=== PATIENT | male | born 1990 | race Caucasian/White ===

== ENCOUNTER 2020-05-31 07:13 | Emergency (ER) | payer SELFPAY ==
[2020-05-31 07:16] VITALS: BP 132/91; PULSE 82; RESP 18; TEMP 36.7; O2SAT 99; BMI 33.6
--- NOTE | 2020-05-31 07:31 | XR_ITS ---
WS: [id number] Exam: XR chest 1V portable [id number] Date/Time of Exam: 05/31/2020 7:31 AM Reason For Exam: chest pain Comparison 06/19/2019. Findings: The lungs are clear and fully expanded. Costophrenic angles are sharp. No infiltrates. Bronchovascula r relief appears normal. Cardiac silhouette is unremarkable. Bony elements are intact. XR/XR chest 1V portable [id number] IMPRESSION: Unremarkable chest radiograph.
--- NOTE | 2020-05-31 07:31 | ECG_ITS ---
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 Measurements Intervals Ellis Rate: 82 P: 69 MN: 171 QRS: 52 QRSD: 97 T: 31 QT: 387 QTc: 453 Interpretive Statements SINUS RHYTHM SEPTAL MYOCARDIAL INFARCTION , PROBABLY OLD [40+ ms Q WAVE IN V1/V2] Compared to ECG 06/19/2019 18:35:04 Myocardial infarct finding now present Sinus arrhythmia no longer present Electronically Signed On 05-31-2020 21:44:06 MACHINE TOOL REBUILDER by Zoe Worthy M.D. [email or web address]/[id number] f
--- NOTE | 2020-05-31 07:32 | ED_ITS ---
HPI - Chest Pain General: Chief Complaint: Chest Pain Stated Complaint: cp Time Seen by Provider: 05/31/20 07:17 History of Present Illness: HPI narrative: 30-year-old male presents emergency room complaining chest pain is when it began after he was exercising. He had been walking and running approximately a mile as he was heading back to his vehicle he began to get chest discomfort he describes as lower retrosternal pain he has some numbness in his left arm but no other symptoms its pretty much resolved at this point he laid down and then eventually made it back to his truck and laid down some morning. He does state he has had chest pain in the past and he was seen a year ago although we do not have record of that here. He has history of hypertension he is not diabetic. He is on phentermine for the last several months for weight loss but states he has been tapering off of it. He has had prior episodes including evaluation but is never any known coronary artery disease MD complaint: chest pain Onset (ago): minute(s) Timing of current episode: episodic Prior episodes: Yes Onset: during exertion Pain location: substernal Pain radiation: back Severity: moderate Quality: aching and heaviness Relieving factors: rest Exacerbating factors: exertion Associated symptoms: Deny abdominal pain, diaphoresis, dyspnea, fever(s), leg edema, nausea, palpitations, sense of impending doom, syncope or vomiting Treatment prior to arrival: none Review of Systems Const: Denies: fever(s) or diaphoresis ENMT: Denies: throat pain, ear or mastoid pain, nasal discharge or nasal congestion Card: Denies: palpitations or syncope Resp: Denies: dyspnea GI: Denies: abdominal pain, nausea or vomiting : Denies: flank pain, dysuria, urinary frequency or urinary urgency Skin/Breast: Denies: rash or pruritus PFS ED PFSH: Medical History (Updated 05/31/20 @ 10:20 by Socrates Arellano DO) Hypertension Social History (Updated 05/31/20 @ 07:43 by Socrates Arellano DO) Smoking and tobacco status: former smoker Alcohol intake: former Physical Exam Const: COMMON NORMALS: no acute distress GENERAL APPEARANCE: cooperative and comfortable ORIENTATION/CONSCIOUSNESS: Yes awake, Yes oriented to person, Yes oriented to place and Yes oriented to time HENMT: COMMON NORMALS: normocephalic, atraumatic and hearing grossly normal bilaterally HEAD & SCALP: normocephalic and atraumatic Eye: COMMON NORMALS: Equal, round and reactive pupils present, EOMs intact bilaterally, conjunctivae normal and no scleral icterus CONJUNCTIVA: Yes conjunctivae normal PUPIL: Yes Equal, round and reactive pupils present Neck/C-Spine: COMMON NORMALS: full ROM, no lymphadenopathy, supple and no JVD Lymph: LYMPHATIC: no lymphadenopathy noted and no lymphedema noted Resp: COMMON NORMALS: normal respiratory effort, No retractions, No use of accessory muscles and clear to auscultation bilaterally AUSCULTATION: clear to auscultation bilaterally Cardio: COMMON NORMALS: no JVD, regular rate, regular rhythm and No murmurs present (Cardio) RATE: regular rate RHYTHM: regular rhythm GI: COMMON NORMALS: Soft to palpation and No hepatosplenomegaly present AUSCULTATION: Yes normoactive bowel sounds PALPATION: Yes Soft to palpation, No Tenderness to palpation present (GI), No Guarding due to palpation present (GI) and Yes No hepatosplenomegaly present Extremity: COMMON NORMALS: normal to inspection, capillary refill normal, no clubbing, cyanosis or edema, no calf tenderness and no pedal edema Neuro: SENSORIUM/ORIENTATION: Yes oriented to person, Yes oriented to place and Yes oriented to time Skin: COMMON NORMALS: no rashes or lesions noted GENERAL SKIN EXAM: no rashes or lesions noted Course Vital Signs: Vital signs: Vital Signs Temperature 98.1 F 05/31/20 07:16 Pulse Rate 71 05/31/20 10:25 Respiratory Rate 15 05/31/20 10:25 Blood Pressure 142/80 05/31/20 10:25 Pulse Oximetry 97 05/31/20 10:25 MDM - Chest Pain MDM Narrative: Medical decision making narrative: Enzymes negative. We will set up for outpatient stress test. Patient mentioned some right-sided abdominal pain that he experienced shortly after he voided while he was in the emergency room repeat exam the abdomen is completely benign no signs of hernia no tenderness no masses palpable follow-up as needed. Lab Data: Labs: Lab Results 05/31/20 05/31/20 05/31/20 Range/Units 07:25 07:25 07:25 WBC Cancelled Corrected WBC Cancelled RBC Cancelled Hgb Cancelled Hct Cancelled MCV Cancelled MCH Cancelled MCHC Cancelled RDW Cancelled Plt Count Cancelled MPV Cancelled Gran % Cancelled Neut % (Auto) Cancelled Lymph % (Auto) Cancelled Weld % (Auto) Cancelled Eos % (Auto) Cancelled Baso % (Auto) Cancelled Neut # (Auto) Cancelled Lymph # (Auto) Cancelled Weld # (Auto) Cancelled Eos # (Auto) Cancelled Baso # (Auto) Cancelled Absolute Gran (aut o) Cancelled Nucleated RBC % (a uto) Cancelled Nucleated RBCs # Cancelled Sodium 141 (136-145) mmol/L Potassium 4.0 (3.5-5.1) mmol/L Chloride 100 (98-107) mmol/L Carbon Dioxide 30 H (22-29) mmol/L Anion Gap 15.0 (5-19) BUN 14 (6-20) mg/dL Creatinine 1.2 (0.7-1.2) mg/dL GFR Calculation 72.1 L (90-130) mL/min Glucose 130 H (65-115) mg/dL Calculated Osmolal ity 294 (285-295) mOsm/k g Calcium 10.3 (8.5-10.5) mg/dL Total Bilirubin 0.3 (0.15-1.2) mg/dL AST 21 (0-40) U/L ALT 26 (0-41) U/L Alkaline Phosphata se 77 (40-130) IU/L Creatine Kinase 203 (39-308) U/L Troponin T Baselin e 8 (0-15) ng/L Troponin T 120 Min [place] (0-15) ng/L Delta Troponin T (0-10) ABS# Total Protein 7.6 (6.6-8.7) g/dL Albumin 5.0 (3.5-5.2) g/dL Globulin 2.6 (1.3-4.6) g/dL 05/31/20 05/31/20 Range/Units 08:11 09:29 WBC 12.1 H Corrected WBC RBC 5.24 Hgb 15.6 Hct 45.5 MCV 86.8 MCH 29.8 MCHC 34.3 RDW 12.4 Plt Count 175 MPV 10.3 Gran % Neut % (Auto) 78.6 Lymph % (Auto) 14.7 Weld % (Auto) 5.5 Eos % (Auto) 0.6 Baso % (Auto) 0.4 Neut # (Auto) 9.50 H Lymph # (Auto) 1.8 Weld # (Auto) 0.7 Eos # (Auto) 0.1 Baso # (Auto) 0.1 Absolute Gran (aut o) Nucleated RBC % (a uto) 0 Nucleated RBCs # 0.0 Sodium (136-145) mmol/L Potassium (3.5-5.1) mmol/L Chloride (98-107) mmol/L Carbon Dioxide (22-29) mmol/L Anion Gap (5-19) BUN (6-20) mg/dL Creatinine (0.7-1.2) mg/dL GFR Calculation (90-130) mL/min Glucose (65-115) mg/dL Calculated Osmolal ity (285-295) mOsm/k g Calcium (8.5-10.5) mg/dL Total Bilirubin (0.15-1.2) mg/dL AST (0-40) U/L ALT (0-41) U/L Alkaline Phosphata se (40-130) IU/L Creatine Kinase (39-308) U/L Troponin T Baselin e (0-15) ng/L Troponin T 120 Min [place] 7.41 (0-15) ng/L Delta Troponin T -0.59 L (0-10) ABS# Total Protein (6.6-8.7) g/dL Albumin (3.5-5.2) g/dL Globulin (1.3-4.6) g/dL Discharge Plan Discharge Patient Disposition: Home Clinical Impression: Atypical chest pain Condition: Stable Prescriptions: New aspirin 81 mg tablet,delayed release (DR/EC) 81 mg PO DAILY Qty: 30 RF: 0 Discontinued phentermine 37.5 mg tablet 37.5 mg PO DAILY RF: 0 No Action calcium 600 mg Capsule 1,200 mg PO DAILY RF: 0 buspirone 5 mg Tablet 5 mg PO BID RF: 0 chlorthalidone 25 mg Tablet 25 mg PO DAILY RF: 0 bupropion HCl 100 mg Tablet 100 mg PO BID RF: 0 Vitamin D2 1,250 mcg (50,000 unit) capsule 1,250 mcg PO Q7D RF: 0 metoprolol tartrate 25 mg tablet 25 mg PO BID RF: 0 magnesium oxide 400 mg magnesium Tablet 400 mg PO BID RF: 0 Colace See Rx Instructions .ROUTE .COMPLEX RF: 0 Tums See Rx Instructions .ROUTE .COMPLEX RF: 0 Discharge Orders: Discharge Order (Routine); Ordered 05/31/20 Ordered By: Socrates Arellano Referrals: Jackie Solano FNP [Family Provider] - Discharge Diet: Usual diet Discharge Activity: Increase activity as tolerated Activity Restrictions/Additional Instructions: Case management will call to schedule you for a stress test. Coding Level of Care Code ED Regional Marketing Manager for [employer] Fwd Exam Comprehensive
--- NOTE | 2020-05-31 07:57 | PC.NURSE ---
Read and agree with assessment
[2020-05-31 08:02] LABS: Troponin(5th) Baseline 8 ng/L (0-15)
[2020-05-31 08:14] LABS: Alanine Aminotransferase 26 U/L (0-41); Alkaline Phosphatase 77 IU/L (40-130); Aspartate Amino Transferase 21 U/L (0-40); Blood Urea Nitrogen 14 mg/dL (6-20); Calcium 10.3 mg/dL (8.5-10.5); Carbon Dioxide 30 mmol/L (22-29); Chloride 100 mmol/L (98-107); Creatine Phosphokinase 203 U/L (39-308); Globulin 2.6 g/dL (1.3-4.6); Glomerular Filtration Rate 72.1 mL/min (90-130); Glucose 130 mg/dL (65-115); Osmolality Calculated 294 mOsm/kg (285-295); Sodium 141 mmol/L (136-145); Total Bilirubin 0.3 mg/dL (0.15-1.2); Total Protein 7.6 g/dL (6.6-8.7)
[2020-05-31 08:15] LABS: Basophils # 0.1 10^3/uL (0.0-0.1); Basophils % 0.4 %; Eosinophils # 0.1 10^3/uL (0.0-0.8); Eosinophils % 0.6 %; Hematocrit 45.5 % (42.0-52.0); Hemoglobin 15.6 g/dL (11.7-16.6); Lymphocytes # 1.8 10^3/uL (0.8-4.8); Lymphocytes % 14.7 %; Mean Corpuscular HGB Conc 34.3 g/dL (30.0-36.0); Mean Corpuscular Hemoglobin 29.8 pg (28.0-34.0); Mean Corpuscular Volume 86.8 fL (80-94); Mean Platelet Volume 10.3 fL (7.4-10.4); Monocytes # 0.7 10^3/uL (0.2-0.9); Monocytes % 5.5 %; Neutrophils % 78.6 %; Nucleated Red Blood Cells % 0 %; Platelet Count 175 10^3/cmm (130-400); Red Blood Count 5.24 10^6/uL (4.1-5.3); Red Cell Distribution Width 12.4 % (12.1-15.1); White Blood Count 12.1 10^3/uL (4.0-10.0)
[2020-05-31 10:04] LABS: Troponin 5 2HR 7.41 ng/L (0-15)
[2020-05-31 10:10] LABS: Troponin 5 2HR Delta -0.59 ABS# (0-10)
[2020-05-31 10:25] VITALS: BP 142/80; PULSE 71; RESP 15; O2SAT 97
--- NOTE | 2020-05-31 13:31 | ECG_ITS ---
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 Measurements Intervals [place] Rate: 79 P: 58 [place]: 154 QRS: 54 QRSD: 105 T: 39 QT: 382 QTc: 439 Interpretive Statements SINUS RHYTHM SEPTAL MYOCARDIAL INFARCTION , OF INDETERMINATE AGE [40+ ms Q WAVE IN V1/V2] Compared to ECG 05/31/2020 07:20:48 No significant changes Electronically Signed On 05-31-2020 21:52:03 GOLF CLUB MAKER by Zoe Worthy M.D. [id number]
--- NOTE | 2020-06-01 12:18 | DCPLANNER ---
manager case had a message to schedule an out patient stress test for patient. manager case faxed order to centralized scheduling, will call for appointment information.
--- NOTE | 2020-06-07 15:28 | DCPLANNER ---
Patient has a follow up appointment scheduled for an out patient stress test for , June 16, 2020 at 11:30. Centralized scheduling will call patient with appointment information.
--- NOTE | 2020-07-15 13:13 | DCPLANNER ---
Patent had a stress test scheduled for 20 - patient did attend appointment
== END 2020-05-31 10:25 | disposition home or self-care (01) ==
PROVIDERS: Emergency Provider Family Medicine; PCP Nurse Practitioner Family
DX: R07.89 Other chest pain (principal); I10 Essential (primary) hypertension; Z87.891 Personal history of nicotine dependence
CPT/HCPCS: 12345; 71045; 80053; 82550; 84484; 85025; 93005; 99282; 99283

== ENCOUNTER 2020-06-16 09:19 | Outpatient (CLI) | payer SELFPAY ==
[2020-06-16 09:38] VITALS: BMI 33.1
--- NOTE | 2020-06-16 09:38 | ECG_ITS ---
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 Interpretive Statements NAME OF STUDY: LEXISCAN SESTAMIBI STRESS TEST INDICATION: [Chest Pain] Procedure: The baseline blood pressure was 119/66 mmHg with a heart rate of 62 bpm. The electrocardiogram showed normal sinus rhythm with normal ST and T's. The Lexiscan was infused for a duration of 20 seconds. A total of 0.4 mg of Lexiscan was infused. The stress phase was continued for a total of 5 minutes. Heart rate at end of stress phase was 84 bpm, with a blood pressure 118/65 mmHg. The EKG at the peak infusion revealed sinus rhythm with no significant ST-T wave changes. Sestamibi was injected 20 seconds after Lexiscan infusion. Blood pressure at the end of recovery phase was 126/64 mmHg with a heart rate of 88 bpm. No significant EKG changes during recovery phase. Conclusion: 1. Normal EKG response to Lexiscan infusion. 2. No Lexiscan induced chest pain or cardiac arrhythmia. 3. Normal blood pressure and heart rate response. 4. Sestamibi/sestamibi perfusion scan pending; see separate report. Electronically Signed On 06-16-2020 18:52:01 MANAGER DOCUMENTATION by Elvin Magana M.D. [id number]
--- NOTE | 2020-06-16 09:39 | NMCV_ITS ---
NM [place] perf SPECT r/s* [id number] LomaAmando lisa Age: 30 Gender: M : 1990 Exam Date: 06/16/2020 09:39 Ordering Phys: Socrates Arellano DO Technologist: CHACHO Sanderson Exam Location: [facility] Indications: CHEST PAIN STRESS TEST Please see separate stress test report in [facility] for full findings IMAGE PROTOCOL Rest/Stress 1 Lexiscan Day Radiopharmaceutical Dose (mCi) Administration Site Administered by Rest: Tc-99m 10.6 IV CHACHO Mann Sestamibi Stress:Tc-99m 32.3 IV CHACHO Mann Sestamibi Rest: 16-Jun-2020 60 Discovery 630 Stress: 16-Jun-2020 30 Discovery 630 0.4mg Lexiscan. Images obtained in supine and prone position. SPECT RESULTS Technical Quality: Excellent Raw Data Analysis: Normal Image Corrections: No attenuation or motion correction applied Summed Stress Score: 0 Summed Rest Score: 0 Summed Difference Score: 0 PERFUSION FINDINGS There is reduced radiotracer uptake in apical and inferior menezes both on rest and stress images. This is likely from attenuation artifact. No evidence of ischemia is noted. FUNCTIONAL RESULTS (calculated via Gated SPECT) Stress Image LV EF (%): 62 Stress EDV (mL):149 TID: 0.95 Stress ESV (mL):57 FUNCTIONAL FINDINGS: Normal LV systolic function with EF 62%. IMPRESSIONS 1. There is reduced radiotracer uptake in the inferior and apical menezes both on rest and stress images. This is likely secondary to attenuation artifact. 2. No evidence of ischemia is noted. 3. LV systolic function is normal with EF of 62%. Elvin Magana MD (Electronically Signed) Final Date: 16 June 2020 16:44 S
--- NOTE | 2020-06-16 11:38 | SUR.PREOP ---
Patient reports no pain or discomfort prior to the start of the procedure.
[2020-06-16] MEDS: regadenoson 0.4 Mg/5 ml Syringe IVP (11:49)
[2020-06-16 12:05] VITALS: BP 126/64; PULSE 84
== END 2020-06-16 09:20 | disposition home or self-care (01) ==
LOC: CDL 09:23
PROVIDERS: PCP Family Medicine; Visit Provider Family Medicine
DX: R07.9 Chest pain, unspecified (principal)
CPT/HCPCS: 78452; 93017; A9500; J2785

== ENCOUNTER 2020-08-04 07:47 | Outpatient (CLI) | payer SELFPAY ==
--- NOTE | 2020-08-04 08:05 | CT_ITS ---
WS: [id number] CT ABDOMEN PELVIS TECHNIQUE: Contrast-enhanced CT of the abdomen and pelvis with coronal and sagittal reformatted image s. CLINICAL INFORMATION: ABNORMAL FINDINGS OF DIAGNOSTIC IMAGING OF LEFT KIDNEY COMPARISON: None. DLP: 800.[address] scans at [facility] use at least one of these dose optimization techniques: automat ed exposure control; mA and/or kV adjustment per patient size (includes targeted exams where dose is matched to clinical indication); or iterative reconstruction. FINDINGS: Mild diffuse fatty infiltration of the liver. Normal spleen. Normal GE junction. Lung bases are well aerated. Adrenal glands are normal. Normal visualized pancreas. Normal renal parenchymal enhancement. No hydronephrosis. No evidence of left kidney mass. Normal caliber abdominal aorta. Normal large and small bowel. No evidence of high-grade obstruction. Fat-containing umbilical hernia. No free fluid in the abdomen or pelvis. No periaortic or retroperito manjeet lymphadenopathy. No inguinal or pelvic lymphadenopathy. Normal lumbar spine. CT/CT abdomen pelvis w con* [id number] IMPRESSION: 1. Mild diffuse fatty infiltration of the liver. 2. Normal renal parenchymal enhancement. No hydronephrosis. No visualized left kidney mass or nodule. 3. Normal caliber abdominal aorta. 4. Incidental fat-containing umbilical hernia. 5. No free fluid in the abdomen or pelvis.
[2020-08-04] MEDS: iohexol 300 mg/mL 100 mL Btl IV (08:35)
== END 2020-08-04 07:48 | disposition home or self-care (01) ==
LOC: RADWPI 07:50
PROVIDERS: PCP Family Medicine; Visit Provider Family Medicine
DX: R93.422 Abnormal radiologic findings on diagnostic imaging of left kidney (principal); K76.0 Fatty (change of) liver, not elsewhere classified; K42.9 Umbilical hernia without obstruction or gangrene
CPT/HCPCS: 74177; Q9967

== ENCOUNTER 2023-03-23 16:56 | Emergency (ER) | payer SELFPAY ==
[2023-03-23 17:02] VITALS: BP 138/83; PULSE 81; RESP 15; TEMP 36.8; O2SAT 99; BMI 41.2
--- NOTE | 2023-03-23 17:09 | ECG_ITS ---
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 Measurements Intervals [place] Rate: 72 P: 44 IN: 150 QRS: 53 QRSD: 112 T: 29 QT: 391 QTc: 428 Interpretive Statements SINUS RHYTHM MODERATE INTRAVENTRICULAR CONDUCTION DELAY [110+ ms QRS DURATION] Compared to ECG 05/31/2020 09:24:46 Intraventricular conduction delay now present Myocardial infarct finding no longer present Electronically Signed On 03-24-2023 10:53:16 CDT by Jaleel Bueno M.D. [id number]
--- NOTE | 2023-03-23 17:19 | XRR_ITS ---
PROCEDURE INFORMATION: Exam: XR Chest Exam date and time: 03/23/2023 6:00 PM Age: 32 years old Clinical indication: Left-sided; Patient HX: Left sided chest pain; Additional info: Chest discomfort TECHNIQUE: Imaging protocol: Radiologic exam of the chest. Views: 1 view. COMPARISON: CR XR chest 1V portable [id number] 05/31/2020 7:59 AM FINDINGS: Lungs: Unremarkable. No consolidation. Pleural spaces: Unremarkable. No pleural effusion. No pneumothorax. Heart/Mediastinum: Stable heart size. Bones/joints: Stable bones. XR/XR chest 1V portable [id number] IMPRESSION: No acute findings.
[2023-03-23 17:40] LABS: Basophils % 0.5 %; Eosinophils # 0.2 10^3/uL (0.0-0.8); Eosinophils % 1.7 %; Hematocrit 43.3 % (37-53); Lymphocytes # 1.6 10^3/uL (0.8-4.8); Lymphocytes % 17.8 %; Mean Corpuscular HGB Conc 35.3 g/dL (30-55); Mean Corpuscular Volume 87.8 fl (82-101); Mean Platelet Volume 10.9 fL (7.4-10.4); Monocytes # 0.5 10^3/uL (0.2-0.9); Monocytes % 5.6 %; Neutrophils # 6.58 10^3/uL (1.8-7.7); Neutrophils % 74.2 %; Nucleated Red Blood Cells % 0 %; Platelet Count 140 10^3/cmm (157-399); Red Blood Count 4.93 10^6/uL (3.85-5.65); Red Cell Distribution Width 12.3 % (12.1-15.1); White Blood Count 8.87 10^3/uL (3.29-11.43)
--- NOTE | 2023-03-23 17:41 | ED_ITS ---
Documented by User: Socrates Arellano DO 03/25/23 06:59 HPI - Dizziness General: Chief Complaint: Dizziness Stated Complaint: sob,dizzy, n/v Time Seen by Provider: 03/23/23 17:41 Source: patient Mode of arrival: ambulatory History of Present Illness: HPI Narrative: 32-year-old male presents emergency room with complaint of chest pain has had it throughout the day. He has not noticed anything that makes it better or worse. He has not had any rapid heart rates has been very fatigued he denies any fever sweats or chills. Some waxing waning without exacerbation or relieving factors that he has been noticing. Notes no abdominal pain no dysuria urgency or frequency. MD elicited complaint: dizziness Timing: gradual onset Severity: mild Description: sense of movement Exacerbating factors: nothing Relieving factors: nothing Associated symptoms: Reports chest pain and malaise; Denies change in hearing, chills, cough, diaphoresis, ear discharge, ear pressure, fevers/chills, headache(s), nausea, nasal congestion, palpitations, rash, short of breath, syncope, tinnitus, vomiting or weakness Associated neuro symptoms: Deny confusion, difficulty speaking, dysphagia, diplopia, extremity weakness, facial numbness, facial weakness, gait changes, numbness in extremities or visual changes Review of Systems Const: Reports: fatigue and malaise; Denies: fever(s), chills or diaphoresis ENMT: Denies: ear discharge, change in hearing, tinnitus or nasal congestion Card: Reports: chest pain; Denies: palpitations or syncope Resp: Denies: dyspnea, productive cough or non-productive cough GI: Denies: abdominal pain, nausea, vomiting or dysphagia : Denies: flank pain, dysuria, urinary frequency or urinary urgency Skin/Breast: Denies: rash or pruritus Neuro: Reports: dizziness; Denies: headache(s), numbness in extremities or confusion PFSH ED PFSH: Medical History Hypertension Social History Smoking and tobacco status: former smoker Alcohol intake: former Physical Exam Const: GENERAL APPEARANCE: cooperative and comfortable ORIENTATION/CONSCIOUSNESS: Yes awake, Yes oriented to person, Yes oriented to place and Yes oriented to time HENMT: COMMON NORMALS: normocephalic, atraumatic and hearing grossly normal bilaterally HEAD & SCALP: normocephalic and atraumatic Resp: COMMON NORMALS: normal respiratory effort, No retractions, No use of accessory muscles and clear to auscultation bilaterally AUSCULTATION: clear to auscultation bilaterally Cardio: COMMON NORMALS: regular rate, regular rhythm and No murmurs present (Cardio) RATE: regular rate RHYTHM: regular rhythm GI: COMMON NORMALS: Soft to palpation and No hepatosplenomegaly present AUSCULTATION: Yes normoactive bowel sounds PALPATION: Yes Soft to palpation, No Tenderness to palpation present (GI), No Guarding due to palpation present (GI) and Yes No hepatosplenomegaly present Extremity: COMMON NORMALS: normal to inspection, capillary refill normal, no clubbing, cyanosis or edema, no calf tenderness and no pedal edema Neuro: SENSORIUM/ORIENTATION: Yes oriented to person, Yes oriented to place and Yes oriented to time OTHER: No focal neurologic deficits noted Skin: COMMON NORMALS: no rashes or lesions noted GENERAL SKIN EXAM: no rashes or lesions noted Course Vital Signs: Vital signs: Vital Signs Temperature 98.2 F 03/23/23 17:02 Pulse Rate 81 03/23/23 17:02 Respiratory Rate 15 03/23/23 17:02 Blood Pressure 138/83 03/23/23 17:02 Pulse Oximetry 99 03/23/23 17:02 Oxygen Delivery Me thod Room Air 03/23/23 17:02 [facility] - Dizziness Medical Decision Making Care signed out to Dr. Doyle at change of shift. See final notes for diagnosis and disposition. Lab Data 03/23/23 17:33 03/23/23 17:33 Radiology Impressions Chest X-Ray 03/23/23 17:19 IMPRESSION: No acute findings. Laboratory Results WBC 8.87 10^3/uL (3.29-11.43) 03/23/23 17:33 RBC 4.93 10^6/uL (3.85-5.65) 03/23/23 17:33 Hgb 15.30 g/dL (11.27-16.99) 03/23/23 17:33 Hct 43.3 % (37-53) 03/23/23 17:33 MCV 87.8 fl (82-101) 03/23/23 17:33 MCH 31.0 pg (27-33) 03/23/23 17:33 MCHC 35.3 g/dL (30-55) 03/23/23 17:33 RDW 12.3 % (12.1-15.1) 03/23/23 17:33 Plt Count 140 10^3/cmm (157-399) L 03/23/23 17:33 MPV 10.9 fL (7.4-10.4) H 03/23/23 17:33 Neut % (Auto) 74.2 % 03/23/23 17:33 Lymph % (Auto) 17.8 % 03/23/23 17:33 [place] % (Auto) 5.6 % 03/23/23 17:33 Eos % (Auto) 1.7 % 03/23/23 17:33 Baso % (Auto) 0.5 % 03/23/23 17:33 Neut # (Auto) 6.58 10^3/uL (1.8-7.7) 03/23/23 17:33 Lymph # (Auto) 1.6 10^3/uL (0.8-4.8) 03/23/23 17:33 [place] # (Auto) 0.5 10^3/uL (0.2-0.9) 03/23/23 17:33 Eos # (Auto) 0.2 10^3/uL (0.0-0.8) 03/23/23 17:33 Baso # (Auto) 0.0 10^3/uL (0.0-0.1) 03/23/23 17:33 Nucleated RBC % (auto) 0 % 03/23/23 17:33 Nucleated RBCs # 0.0 /100WBC 03/23/23 17:33 Sodium 140 mmol/L (136-145) 03/23/23 17:33 Potassium 3.5 mmol/L (3.5-5.1) 03/23/23 17:33 Chloride 104 mmol/L (98-107) 03/23/23 17:33 Carbon Dioxide 27 mmol/L (22-29) 03/23/23 17:33 Anion Gap 12.5 (5-19) 03/23/23 17:33 BUN 12 mg/dL (6-20) 03/23/23 17:33 Creatinine 1.0 mg/dL (0.7-1.2) 03/23/23 17:33 GFR Calculation 87.7 mL/min (90-130) L 03/23/23 17:33 Glucose 91 mg/dL (65-115) 03/23/23 17:33 Calculated Osmolality 289 mOsm/kg (285-295) 03/23/23 17:33 Calcium 8.8 mg/dL (8.5-10.5) 03/23/23 17:33 Total Bilirubin 0.8 mg/dL (0.15-1.2) 03/23/23 17:33 AST 28 U/L (0-40) 03/23/23 17:33 ALT 48 U/L (0-41) H 03/23/23 17:33 Alkaline Phosphatase 61 U/L (40-130) 03/23/23 17:33 Troponin T Baseline 6 ng/L (0-15) 03/23/23 17:33 Troponin T 120 Minute 6.00 ng/L (0-15) 03/23/23 19:13 Delta Troponin T 0 ABS# (0-10) 03/23/23 19:13 Total Protein 6.8 g/dL (6.6-8.7) 03/23/23 17:33 Albumin 4.5 g/dL (3.5-5.2) 03/23/23 17:33 Globulin 2.3 g/dL (1.3-4.6) 03/23/23 17:33 Discharge Plan Discharge Patient Disposition: Home Clinical Impression: Chest pain, Dizziness Condition: Stable Prescriptions: No Action calcium 600 mg Capsule 1,200 mg PO DAILY buspirone 5 mg Tablet 5 mg PO BID chlorthalidone 25 mg Tablet 25 mg PO DAILY bupropion HCl 100 mg Tablet 100 mg PO BID Vitamin D2 1,250 mcg (50,000 unit) capsule 1,250 mcg PO Q7D Rx Instructions: PT STATES HE TAKES ON WEDNESDAYS. metoprolol tartrate 25 mg tablet 25 mg PO BID magnesium oxide 400 mg magnesium Tablet 400 mg PO BID Colace See Rx Instructions .ROUTE .COMPLEX Rx Instructions: USE DIRECTED Tums See Rx Instructions .ROUTE .COMPLEX Rx Instructions: USE DIRECTED aspirin 81 mg tablet,delayed release (DR/EC) 81 mg PO DAILY Qty: 30 0RF Discharge Orders: Discharge ED (Routine); Ordered 03/23/23 Ordered By: Martinez Doyle Referrals: Samara Parra [Primary Care Provider] - 4-7 days Patient Instructions: Chest Pain (ED), Dizziness (ED) Activity Restrictions/Additional Instructions: Return for repeated or worsening episodes of chest discomfort, dizziness or passing out, other concerning symptoms. Make sure you are staying hydrated. Stay in a cool environment for the next 24 hours. Watch for fever, other new symptoms. See your doctor this coming week. Stand Alone Forms: Work/School Release Coding Level of Care Code ED Inspector Receiving for Chg Fwd Documented by User: Martinez Doyle DO 03/23/23 19:25 HPI - Dizziness General: Chief Complaint: Dizziness Stated Complaint: sob,dizzy, n/v Time Seen by Provider: 03/23/23 17:41 PFSH ED PFSH: Medical History Hypertension Social History Smoking and tobacco status: former smoker Alcohol intake: former Course Vital Signs: Vital signs: Vital Signs Temperature 98.2 F 03/23/23 17:02 Pulse Rate 81 03/23/23 17:02 Respiratory Rate 15 03/23/23 17:02 Blood Pressure 138/83 03/23/23 17:02 Pulse Oximetry 99 03/23/23 17:02 Oxygen Delivery Me thod Room Air 03/23/23 17:02 MDM - Dizziness Medical Decision Making Care signed out to Dr. Doyle at change of shift. See final notes for diagnosis and disposition. 32-year-old male checked out to me by Dr. Arellano at shift change. This patient has had generalized weakness, dizziness, feeling faint. He has had some chest pain on and off. His CBC is normal. His BMP is normal. Liver enzymes are normal. Troponin is 6. EKG shows a sinus rhythm with a rate of 68 normal axis normal intervals and no acute ST-T wave changes. His chest x-ray is negative. He will be allowed discharge. He is received a liter of fluid, and is feeling somewhat improved. Lab Data 03/23/23 17:33 03/23/23 17:33 Radiology Impressions Chest X-Ray 03/23/23 17:19 IMPRESSION: No acute findings. Laboratory Results WBC 8.87 10^3/uL (3.29-11.43) 03/23/23 17:33 RBC 4.93 10^6/uL (3.85-5.65) 03/23/23 17:33 Hgb 15.30 g/dL (11.27-16.99) 03/23/23 17: Hct 43.3 % (37-53) 03/23/23 17:33 MCV 87.8 fl (82-101) 03/23/23 17:33 MCH 31.0 pg (27-33) 03/23/23 17: MCHC 35.3 g/dL (30-55) 03/23/23 17:33 RDW 12.3 % (12.1-15.1) 03/23/23 17:33 Plt Count 140 10^3/cmm (157-399) L 03/23/23 17:33 MPV 10.9 fL (7.4-10.4) H 03/23/23 17:33 Neut % (Auto) 74.2 % 03/23/23 17:33 Lymph % (Auto) 17.8 % 03/23/23 17:33 [place] % (Auto) 5.6 % 03/23/23 17:33 Eos % (Auto) 1.7 % 03/23/23 17:33 Baso % (Auto) 0.5 % 03/23/23 17:33 Neut # (Auto) 6.58 10^3/uL (1.8-7.7) 03/23/23 17:33 Lymph # (Auto) 1.6 10^3/uL (0.8-4.8) 03/23/23 17:33 [place] # (Auto) 0.5 10^3/uL (0.2-0.9) 03/23/23 17:33 Eos # (Auto) 0.2 10^3/uL (0.0-0.8) 03/23/23 17:33 Baso # (Auto) 0.0 10^3/uL (0.0-0.1) 03/23/23 17:33 Nucleated RBC % (auto) 0 % 03/23/23 17:33 Nucleated RBCs # 0.0 /100WBC 03/23/23 17:33 Sodium 140 mmol/L (136-145) 03/23/23 17:33 Potassium 3.5 mmol/L (3.5-5.1) 03/23/23 17:33 Chloride 104 mmol/L (98-107) 03/23/23 17:33 Carbon Dioxide 27 mmol/L (22-29) 03/23/23 17:33 Anion Gap 12.5 (5-19) 03/23/23 17:33 BUN 12 mg/dL (6-20) 03/23/23 17:33 Creatinine 1.0 mg/dL (0.7-1.2) 03/23/23 17:33 GFR Calculation 87.7 mL/min (90-130) L 03/23/23 17:33 Glucose 91 mg/dL (65-115) 03/23/23 17:33 Calculated Osmolality 289 mOsm/kg (285-295) 03/23/23 17:33 Calcium 8.8 mg/dL (8.5-10.5) 03/23/23 17:33 Total Bilirubin 0.8 mg/dL (0.15-1.2) 03/23/23 17:33 AST 28 U/L (0-40) 03/23/23 17:33 ALT 48 U/L (0-41) H 03/23/23 17:33 Alkaline Phosphatase 61 U/L (40-130) 03/23/23 17:33 Troponin T Baseline 6 ng/L (0-15) 03/23/23 17:33 Troponin T 120 Minute 6.00 ng/L (0-15) 03/23/23 19:13 Delta Troponin T 0 ABS# (0-10) 03/23/23 19:13 Total Protein 6.8 g/dL (6.6-8.7) 03/23/23 17:33 Albumin 4.5 g/dL (3.5-5.2) 03/23/23 17:33 Globulin 2.3 g/dL (1.3-4.6) 03/23/23 17:33 Discharge Plan Discharge Patient Disposition: Home Clinical Impression: Chest pain, Dizziness Condition: Stable Prescriptions: No Action calcium 600 mg Capsule 1,200 mg PO DAILY buspirone 5 mg Tablet 5 mg PO BID chlorthalidone 25 mg Tablet 25 mg PO DAILY bupropion HCl 100 mg Tablet 100 mg PO BID Vitamin D2 1,250 mcg (50,000 unit) capsule 1,250 mcg PO Q7D Rx Instructions: PT STATES HE TAKES ON WEDNESDAYS. metoprolol tartrate 25 mg tablet 25 mg PO BID magnesium oxide 400 mg magnesium Tablet 400 mg PO BID Colace See Rx Instructions .ROUTE .COMPLEX Rx Instructions: USE DIRECTED Tums See Rx Instructions .ROUTE .COMPLEX Rx Instructions: USE DIRECTED aspirin 81 mg tablet,delayed release (DR/EC) 81 mg PO DAILY Qty: 30 0RF Discharge Orders: Discharge ED (Routine); Ordered 03/23/23 Ordered By: Martinez Doyle Referrals: Samara Parra [Primary Care Provider] - 4-7 days Patient Instructions: Chest Pain (ED), Dizziness (ED) Activity Restrictions/Additional Instructions: Return for repeated or worsening episodes of chest discomfort, dizziness or passing out, other concerning symptoms. Make sure you are staying hydrated. Stay in a cool environment for the next 24 hours. Watch for fever, other new symptoms. See your doctor this coming week. Stand Alone Forms: Work/School Release Coding Level of Care Code ED Inspector Receiving for Forest Reese
[2023-03-23 18:11] LABS: Alanine Aminotransferase 48 U/L (0-41); Albumin Level 4.5 g/dL (3.5-5.2); Alkaline Phosphatase 61 U/L (40-130); Anion Gap 12.5 (5-19); Aspartate Amino Transferase 28 U/L (0-40); Blood Urea Nitrogen 12 mg/dL (6-20); Calcium 8.8 mg/dL (8.5-10.5); Carbon Dioxide 27 mmol/L (22-29); Chloride 104 mmol/L (98-107); Globulin 2.3 g/dL (1.3-4.6); Glomerular Filtration Rate 87.7 mL/min (90-130); Glucose 91 mg/dL (65-115); Osmolality Calculated 289 mOsm/kg (285-295); Potassium 3.5 mmol/L (3.5-5.1); Sodium 140 mmol/L (136-145); Total Bilirubin 0.8 mg/dL (0.15-1.2); Total Protein 6.8 g/dL (6.6-8.7)
[2023-03-23 18:12] LABS: Troponin(5th) Baseline 6 ng/L (0-15)
[2023-03-23] MEDS: sodium chloride 0.9% 1,000 ML 999 ML IV (18:26)
[2023-03-23] MEDS: ketorolac 30 mg/mL INJ 15 MG IVP (19:00)
[2023-03-23 19:37] LABS: Troponin 5 2HR Delta 0 ABS# (0-10)
--- NOTE | 2023-03-23 23:19 | ECG_ITS ---
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 Measurements Intervals [place] Rate: 68 P: 35 RI: 159 QRS: 49 QRSD: 100 T: 32 QT: 377 QTc: 404 Interpretive Statements SINUS RHYTHM Compared to ECG 03/23/2023 17:09:57 Intraventricular conduction delay no longer present Electronically Signed On 03-24-2023 10:56:07 CDT by Jaleel Bueno M.D. [id number]
== END 2023-03-23 20:22 | disposition home or self-care (01) ==
PROVIDERS: Emergency Medicine; Emergency Provider Emergency Medicine; PCP Family Medicine
DX: R42 Dizziness and giddiness (principal); R07.9 Chest pain, unspecified; Z79.82 Long term (current) use of aspirin; I10 Essential (primary) hypertension; Z87.891 Personal history of nicotine dependence
CPT/HCPCS: 36415; 71045; 80053; 84484; 85025; 93005; 96361; 96374; 99285; J1885; J7030

== ENCOUNTER 2024-12-25 09:24 | Emergency (ER) | payer BC, SELFPAY ==
--- NOTE | 2024-12-25 09:29 | ECG_ITS ---
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 Measurements Intervals [place] Rate: 62 P: 68 VT: 153 QRS: 61 QRSD: 104 T: 64 QT: 405 QTc: 412 Interpretive Statements SINUS RHYTHM Compared to ECG 03/23/2023 19:11:38 No significant changes Electronically Signed On 12-25-2024 14:47:20 CDT by Elvin Magana M.D. [id number]
[2024-12-25 09:33] VITALS: BP 149/95; PULSE 58; RESP 17; TEMP 36.4; O2SAT 100; BMI 30.4
[2024-12-25 09:58] LABS: Basophils % 0.5 %; Eosinophils # 0.1 10^3/uL (0.0-0.8); Hematocrit 40.6 % (37-53); Lymphocytes # 1.5 10^3/uL (0.8-4.8); Lymphocytes % 24.6 %; Mean Corpuscular HGB Conc 33.7 g/dL (30-55); Monocytes # 0.4 10^3/uL (0.2-0.9); Monocytes % 7.1 %; Neutrophils # 3.92 10^3/uL (1.8-7.7); Neutrophils % 66.6 %; Nucleated Red Blood Cells % 0 %; Platelet Count 141 10^3/cmm (157-399); Red Blood Count 4.56 10^6/uL (3.85-5.65); Red Cell Distribution Width 12.5 % (12.1-15.1); White Blood Count 5.89 10^3/uL (3.29-11.43)
--- NOTE | 2024-12-25 10:00 | ED_ITS ---
HPI - Chest Pain 2 General: Chief Complaint: Chest Pain Stated Complaint: chest pain Time Seen by Provider: 12/25/24 09:45 History of Present Illness: 34-year-old male presents emergency room complaint of intermittent chest pain for the last several weeks he has some epigastric pain with it as well as not as lasting exacerbates or relieves it he not have any associated diaphoresis or dyspnea. No fever sweats or chills no productive cough. No hematochezia melena hematemesis cough cramps no dysuria urgency or frequency no hematuria. Associated symptoms: Deny abdominal pain, dyspnea or fever(s) Related Data Previous Rx's ?Medication ?Instructions ?Recorded pantoprazole 40 mg tablet,delayed 40 mg PO BID 10 days #40 tabs 12/25/24 release (Protonix) Allergies Allergy/AdvReac Type Severity Reaction Status Date / Time No Known Allergies Allergy Verified 12/18/23 11:16 Review of Systems 2 Const: Denies: fever(s) or chills Card: Reports: chest pain Resp: Denies: dyspnea GI: Denies: abdominal pain : Denies: dysuria, urinary frequency or urinary urgency Musc: Denies: neck pain or back pain Skin/Breast: Denies: rash PFSH ED 2 PFSH: Medical History Hypertension Social History Smoking and tobacco/nicotine status: former use of tobacco/nicotine Alcohol intake: former Physical Exam 2 Const: GENERAL APPEARANCE: cooperative ORIENTATION/CONSCIOUSNESS: Yes awake, Yes oriented to person, Yes oriented to place and Yes oriented to time HENMT: COMMON NORMALS: normocephalic, atraumatic and hearing grossly normal bilaterally HEAD & SCALP: normocephalic and atraumatic Resp: COMMON NORMALS: normal respiratory effort, No retractions, No use of accessory muscles and clear to auscultation bilaterally AUSCULTATION: clear to auscultation bilaterally Cardio: COMMON NORMALS: regular rate, regular rhythm and No murmurs present (Cardio) RATE: regular rate RHYTHM: regular rhythm GI: COMMON NORMALS: Soft to palpation and No hepatosplenomegaly present A USCULTATION: Yes normoactive bowel sounds PALPATION: Yes Soft to palpation, No Tenderness to palpation present (GI), No Guarding due to palpation present (GI) and Yes No hepatosplenomegaly present Extremity: COMMON NORMALS: normal to inspection, capillary refill normal, no clubbing, cyanosis or edema, no calf tenderness and no pedal edema Neuro: SENSORIUM/ORIENTATION: Yes oriented to person, Yes oriented to place and Yes oriented to time Skin: COMMON NORMALS: no rashes or lesions noted GENERAL SKIN EXAM: no rashes or lesions noted Course 2 Vital Signs: Vital signs: Vital Signs Temperature 97.5 F L 12/25/24 09:33 Pulse Rate 45 L 12/25/24 13:47 Respiratory Rate 17 12/25/24 09:33 Blood Pressure 131/74 12/25/24 13:47 Pulse Oximetry 98 12/25/24 13:47 Oxygen Delivery Me thod Room Air 12/25/24 13:09 MDM - Chest Pain Medical Decision Making EKG does not show any acute changes. Chest x-ray normal cardiac enzymes undetectable. Suspect given his rather rapid low weight loss of 90 pounds in 6 months some of this may be biliary colic. His description certainly does sound like there are some GI component to it there are no sign of acute coronary syndrome PE pneumonia pneumothorax or dissecting aneurysm. Will discharge patient home start him on pantoprazole if he has recurrence or persistent symptoms encouraged him to follow-up with his primary care doctor for further evaluation he may need EGD and/or HIDA scan. Gallbladder ultrasound today did not show any acute cholecystitis or cholelithiasis. Medical Records I reviewed the patient's medical records. Lab Data I reviewed the patient's lab results. 12/25/24 09:51 12/25/24 09:51 Radiology Impressions Chest X-Ray 12/25/24 10:00 Impression: Negative chest. Gallbladder Ultrasound 12/25/24 11:13 Impression: Fatty infiltration of the liver. Laboratory Results WBC 5.89 10^3/uL (3.29-11.43) 12/25/24 09:51 RBC 4.56 10^6/uL (3.85-5.65) 12/25/24 09:51 Hgb 13.70 g/dL (11.27-16.99) 12/25/24 09:51 Hct 40.6 % (37-53) 12/25/24 09:51 MCV 89.0 fl (82-101) 12/25/24 09:51 MCH 30.0 pg (27-33) 12/25/24 09:51 MCHC 33.7 g/dL (30-55) 12/25/24 09:51 RDW 12.5 % (12.1-15.1) 12/25/24 09:51 Plt Count 141 10^3/cmm (157-399) L 12/25/24 09:51 MPV 11.0 fL (7.4-10.4) H 12/25/24 09:51 Neut % (Auto) 66.6 % 12/25/24 09:51 Lymph % (Auto) 24.6 % 12/25/24 09:51 [place] % (Auto) 7.1 % 12/25/24 09:51 Eos % (Auto) 1.0 % 12/25/24 09:51 Baso % (Auto) 0.5 % 12/25/24 09:51 Neut # (Auto) 3.92 10^3/uL (1.8-7.7) 12/25/24 09:51 Lymph # (Auto) 1.5 10^3/uL (0.8-4.8) 12/25/24 09:51 [place] # (Auto) 0.4 10^3/uL (0.2-0.9) 12/25/24 09:51 Eos # (Auto) 0.1 10^3/uL (0.0-0.8) 12/25/24 09:51 Baso # (Auto) 0.0 10^3/uL (0.0-0.1) 12/25/24 09:51 Nucleated RBC % (auto) 0 % 12/25/24 09:51 Nucleated RBCs # 0.0 /100WBC 12/25/24 09:51 Sodium 142 mmol/L (136-145) 12/25/24 09:51 Potassium 4.2 mmol/L (3.5-5.1) 12/25/24 09:51 Chloride 105 mmol/L (98-107) 12/25/24 09:51 Carbon Dioxide 26 mmol/L (22-29) 12/25/24 09:51 Anion Gap 15.2 (5-19) 12/25/24 09:51 BUN 6 mg/dL (6-20) 12/25/24 09:51 Creatinine 0.8 mg/dL (0.7-1.2) 12/25/24 09:51 GFR Calculation 112.0 mL/min (90-130) 12/25/24 09:51 Glucose 99 mg/dL (65-115) 12/25/24 09:51 Calculated Osmolality 292 mOsm/kg (285-295) 12/25/24 09:51 Calcium 9.3 mg/dL (8.5-10.5) 12/25/24 09:51 Total Bilirubin 0.4 mg/dL (0.15-1.2) 12/25/24 09:51 AST 15 U/L (0-40) 12/25/24 09:51 ALT 15 U/L (0-41) 12/25/24 09:51 Alkaline Phosphatase 71 U/L (40-130) 12/25/24 09:51 Troponin T Baseline < 6 ng/L (0-15) 12/25/24 09:51 Troponin T 120 Minute < 6.0 ng/L (0-15) 12/25/24 12:26 Delta Troponin T 0 ABS# (0-10) 12/25/24 12:26 Total Protein 6.7 g/dL (6.6-8.7) 12/25/24 09:51 Albumin 4.6 g/dL (3.5-5.2) 12/25/24 09:51 Globulin 2.1 g/dL (1.3-4.6) 12/25/24 09:51 All radiology interpretation(s) finalized by discharge Discharge Plan Discharge Patient Disposition: Home Clinical Impression: Atypical chest pain, Excessive body weight loss Condition: Stable Prescriptions: New pantoprazole [Protonix] 40 mg tablet,delayed release (DR/EC) 40 mg PO BID 10 Days Qty: 40 0RF Discharge Orders: Discharge ED (Routine); Ordered 12/25/24 Ordered By: Socrates Arellano Referrals: Samara Parra [Primary Care Provider] Discharge Diet: As Directed Discharge Activity: Increase activity as tolerated Patient Instructions: Diet for Stomach Ulcers and Gastritis (ED), Gastroesophageal Reflux in Infants (ED), Opioid Safety, Pain Management Activity Restrictions/Additional Instructions: Thank you for choosing [facility] for your healthcare needs today. It is very important that you follow up as instructed or that you return to the Emergency Department should you have concerns or if your condition changes or worsens in any way. You are seen in the emergency room with complaints of chest pain. Some of the aspects of your pain do sound more as if they are related to gastrointestinal issues. Your cardiac enzymes and EKG did not show any acute changes chest x-ray was also normal and the rest of your labs did not show any clinically significant abnormality. Suspect you may have some gallbladder dysfunction related to the large amount of weight loss she is experienced recently. Recommend you start on Protonix 1 tablet twice a day for 10 days then 1 tablet daily. If you continue to have symptoms follow-up with your primary care doctor for further evaluation. Stand Alone Forms: Work/School Release Print Language: Sammarinese Coding Level of Care Code ED Director Of Income Tax for Forest Reese
--- NOTE | 2024-12-25 10:00 | XR_ITS ---
WS: [id number] Portable AP upright chest, 12/25/2024 Clinical Data: chest pain Comparison: Portable chest, 03/23/2023 Findings: No nodules, masses or effusions are seen. The heart is normal. The pulmonary vascularity is not increased. No pneumonia or pneumothorax is seen. There are small metal artifacts overlying the lower chest bilaterally. XR/XR chest 1V portable [id number] Impression: Negative chest.
[2024-12-25 10:14] LABS: Troponin(5th) Baseline < 6 ng/L (0-15)
[2024-12-25 10:20] LABS: Alanine Aminotransferase 15 U/L (0-41); Albumin Level 4.6 g/dL (3.5-5.2); Alkaline Phosphatase 71 U/L (40-130); Anion Gap 15.2 (5-19); Aspartate Amino Transferase 15 U/L (0-40); Blood Urea Nitrogen 6 mg/dL (6-20); Calcium 9.3 mg/dL (8.5-10.5); Carbon Dioxide 26 mmol/L (22-29); Chloride 105 mmol/L (98-107); Creatinine Clr Calc Pharmacy 178.0703; Globulin 2.1 g/dL (1.3-4.6); Glucose 99 mg/dL (65-115); Osmolality Calculated 292 mOsm/kg (285-295); Potassium 4.2 mmol/L (3.5-5.1); Sodium 142 mmol/L (136-145); Total Bilirubin 0.4 mg/dL (0.15-1.2); Total Protein 6.7 g/dL (6.6-8.7)
--- NOTE | 2024-12-25 11:13 | US_ITS ---
WS: [id number] Gallbladder and right upper quadrant ultrasound, 12/25/2024 Clinical Data: abd pain Comparison: None. Findings: The gallbladder shows no sludge or stone. The wall measures 0.2 cm with no pericholecystic fluid. The common bile duct is 0.4 cm and there are no intrahepatic ductal abnormalities. Liver shows no cysts, masses or dilated intrahepatic ducts. The liver parenchyma shows normal fatty infiltration. The portal vein shows hepatopetal flow. The liver measures 17.7 cm. The pancreas is not obscured by overlying bowel gas and no cyst, pseudocyst, or evidence of pancreatitis is noted. Right kidney measures 12.4 cm and no cyst, masses or hydronephrosis can be seen. The aorta and inferior vena cava show no vascular abnormalities. US/US gall bladder 60620 Impression: Fatty infiltration of the liver.
--- NOTE | 2024-12-25 11:23 | ECG_ITS ---
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 Measurements Intervals [place] Rate: 49 P: 67 NC: 156 QRS: 65 QRSD: 101 T: 65 QT: 426 QTc: 385 Interpretive Statements SINUS BRADYCARDIA SEPTAL MYOCARDIAL INFARCTION , PROBABLY OLD [40+ ms Q WAVE IN V1/V2] Compared to ECG 12/25/2024 09:29:09 Myocardial infarct finding now present Sinus rhythm no longer present Electronically Signed On 12-25-2024 15:00:36 CDT by Elvin Magana M.D. [id number]
--- NOTE | 2024-12-25 12:10 | PC.PHAR ---
Pt did have a list of several medications and some otc's. Last fill on them was in July of this year. Pt states he no longer takes any medications. Removed from chart are the following: Bupropion HcI 75mg 2 po bid 08/07/24 30ds Buspirone 10mg bid prn 07/21/24 30ds Calcium 600mg bid otc Colace 100mg bid otc Hydrochlorothiazide 25mg daily 08/07/24 30ds Mag Ox 400mjg bid otc Tisanidine 4mg q6h prn muscle spasm 12/18/23 10ds Tums 500 otc Citalopram 20mg daily 08/07/24 30ds Vitamin d 50,000 q7d Saturday07/31/24
[2024-12-25 12:46] LABS: Troponin 5 2HR < 6.0 ng/L (0-15); Troponin 5 2HR Delta 0 ABS# (0-10)
[2024-12-25 13:09] VITALS: BP 121/70; PULSE 40; O2SAT 96
[2024-12-25 13:47] VITALS: BP 131/74; PULSE 45; O2SAT 98
== END 2024-12-25 13:48 | disposition home or self-care (01) ==
PROVIDERS: Emergency Provider Family Medicine; PCP Family Medicine
DX: R07.89 Other chest pain (principal); R63.4 Abnormal weight loss; I10 Essential (primary) hypertension; Z87.891 Personal history of nicotine dependence
CPT/HCPCS: 36415; 71045; 76705; 80053; 84484; 85025; 93005; 99285